=== PATIENT | male | born 1990 | race African-American/Black ===

== ENCOUNTER 2021-07-10 23:50 | Emergency (ER) | payer SELFPAY ==
[~2021-07-10] VITALS: Ht 188 cm; Wt 113.0 kg
[2021-07-11] MEDS ORDERED: IBUPROFEN 800MG TABLET PO ONE (02:15)
[2021-07-11 02:37] VITALS: BP 130/77
[2021-07-11] MEDS ORDERED: HYDR-4001 MT (03:36)
[2021-07-11] MEDS ORDERED: IBUP-2030 MT (03:36)
== END 2021-07-11 04:36 | disposition home or self-care (01) ==
LOC: ER 23:50
DX: S92.351A Displaced fracture of fifth metatarsal bone, right foot, initial encounter for closed fracture (principal); W50.2XXA Accidental twist by another person, initial encounter; Y93.89 Activity, other specified; Y92.89 Other specified places as the place of occurrence of the external cause; Y99.8 Other external cause status
CPT/HCPCS: 73630; 99283